=== PATIENT | female | born 1985 | race Caucasian/White ===

== ENCOUNTER → 2017-07-22 | Outpatient (CLI) | payer BC ==
[~2017-07-22] MED LIST: FLEXERIL10 MG PO; HYDROCODONE 1.480 ML PO; LEVEMIR100 U/ML; LEVOTHYROXINE0.1 MG PO; LORTAB 5/500 501 TAB PO; MIRENA52 MG IU; MOTRIN 800800 MG/TAB PO; NAPROSYN500 MG PO; NORCO 325 MG-7.1 TAB PO; NOVOLOG 100U100 U/M1 SC; PRENATAL 1 PLUS1 TAB PO; VITAMIN D 1001000 IU PO
== END ==
LOC: BHSO 15:19
DX: F31.81 Bipolar II disorder (principal)

== ENCOUNTER → 2017-09-02 | Outpatient (CLI) | payer BC | LOC: BHSO 15:22 | DX: F31.81 Bipolar II disorder (principal) ==

== ENCOUNTER → 2017-09-16 | Outpatient (CLI) | payer BC | LOC: BHSO 08:12 | DX: F31.81 Bipolar II disorder (principal) ==

== ENCOUNTER → 2018-04-14 | Outpatient (CLI) | payer BC | LOC: BHSO 08:13 | DX: F31.81 Bipolar II disorder (principal) | CPT/HCPCS: G0463 ==

== ENCOUNTER → 2018-06-14 | Outpatient (CLI) | payer BC | LOC: BHSO 13:05 | DX: F31.81 Bipolar II disorder (principal) ==

== ENCOUNTER → 2018-06-15 | Outpatient (CLI) | payer BC | LOC: BHSO 16:09 | DX: F31.81 Bipolar II disorder (principal) | CPT/HCPCS: G0463 ==

== ENCOUNTER → 2018-06-29 | Outpatient (CLI) | payer BC | LOC: BHSO 16:04 | DX: F31.81 Bipolar II disorder (principal) ==

== ENCOUNTER → 2018-07-06 | Outpatient (CLI) | payer BC | LOC: BHSO 16:04 | DX: F33.1 Major depressive disorder, recurrent, moderate (principal) ==

== ENCOUNTER → 2018-07-12 | Outpatient (CLI) | payer BC | LOC: BHSO 16:03 | DX: F31.11 Bipolar disorder, current episode manic without psychotic features, mild (principal) ==

== ENCOUNTER → 2018-08-02 | Outpatient (CLI) | payer BC | LOC: BHSO 16:02 | DX: F31.11 Bipolar disorder, current episode manic without psychotic features, mild (principal) ==

== ENCOUNTER → 2018-08-17 | Outpatient (CLI) | payer BC | LOC: BHSO 13:06 | DX: F31.11 Bipolar disorder, current episode manic without psychotic features, mild (principal) ==

== ENCOUNTER → 2018-09-01 | Outpatient (CLI) | payer BC | LOC: BHSO 14:00 | DX: F31.11 Bipolar disorder, current episode manic without psychotic features, mild (principal) ==

== ENCOUNTER → 2018-09-22 | Outpatient (CLI) | payer BC | LOC: BHSO 14:00 | DX: F31.81 Bipolar II disorder (principal) ==

== ENCOUNTER → 2018-10-05 | Outpatient (CLI) | payer BC | LOC: BHSO 13:56 | DX: F31.11 Bipolar disorder, current episode manic without psychotic features, mild (principal) ==

== ENCOUNTER → 2018-10-20 | Outpatient (CLI) | payer BC | LOC: BHSO 08:20 | DX: F31.81 Bipolar II disorder (principal) | CPT/HCPCS: G0463 ==

== ENCOUNTER → 2018-11-24 | Outpatient (CLI) | payer BC | LOC: BHSO 07:59 | DX: F31.4 Bipolar disorder, current episode depressed, severe, without psychotic features (principal) | CPT/HCPCS: G0463 ==

== ENCOUNTER → 2018-12-04 | Outpatient (CLI) | payer BC | LOC: BHSO 14:06 | DX: F31.75 Bipolar disorder, in partial remission, most recent episode depressed (principal) | CPT/HCPCS: G0463 ==

== ENCOUNTER → 2018-12-05 | Outpatient (CLI) | payer BC | LOC: BHSO 12:57 | DX: F31.81 Bipolar II disorder (principal) ==

== ENCOUNTER → 2018-12-20 | Outpatient (CLI) | payer BC | LOC: BHSO 11:09 | DX: F31.11 Bipolar disorder, current episode manic without psychotic features, mild (principal) ==

== ENCOUNTER → 2018-12-28 | Outpatient (CLI) | payer BC | LOC: BHSO 08:11 | DX: F31.75 Bipolar disorder, in partial remission, most recent episode depressed (principal) | CPT/HCPCS: G0463 ==

== ENCOUNTER → 2019-01-01 | Outpatient (CLI) | payer BC | LOC: BHSO 11:08 | DX: F31.81 Bipolar II disorder (principal) ==

== ENCOUNTER → 2019-01-18 | Outpatient (CLI) | payer BC | LOC: BHSO 15:02 | DX: F31.81 Bipolar II disorder (principal) ==

== ENCOUNTER → 2019-01-25 | Outpatient (CLI) | payer BC | LOC: BHSO 08:02 | DX: F43.10 Post-traumatic stress disorder, unspecified (principal) | CPT/HCPCS: G0463 ==

== ENCOUNTER → 2019-03-15 | Outpatient (CLI) | payer BC | LOC: BHSO 07:58 | DX: F43.10 Post-traumatic stress disorder, unspecified (principal) | CPT/HCPCS: G0463 ==

== ENCOUNTER → 2019-07-06 | Outpatient (CLI) | payer BC | LOC: BHSO 15:03 | DX: F31.60 Bipolar disorder, current episode mixed, unspecified (principal) | CPT/HCPCS: G0463 ==

== ENCOUNTER → 2019-07-17 | Outpatient (CLI) | payer BC | LOC: BHSO 09:42 | DX: F31.77 Bipolar disorder, in partial remission, most recent episode mixed (principal) | CPT/HCPCS: G0463 ==